=== PATIENT | female | born 2000 | race Caucasian/White ===

== ENCOUNTER 2021-07-19 11:59 | Emergency (ER) | payer SELFPAY ==
[2021-07-19 12:06] VITALS: BP 139/73; PULSE 110; RESP 20; TEMP 36.7; O2SAT 100
--- NOTE | 2021-07-19 12:06 | ED.EAR ---
HPI - Ear Problem General Chief complaint: Ear Stated complaint: ear pain Time Seen by Provider: 07/19/21 12:06 Source: patient and RN notes reviewed History of Present Illness HPI Narrative: Patient is a 21-year-old female who presents the urgent care with complaints of bilateral ear pain for greater than 1 week. Patient states that she started using swimmer's ear drops to bilateral ears and has noticed increased pain and drainage. Patient has been taking ibuprofen. Denies of any fever, nausea, vomiting. Denies of any other upper respiratory complaints. No other acute complaints. No acute distress noted. Patient read the plan of care. Some parts of this dictation were generated by voice recognition software and may contain typographical and/or grammatical inaccuracies. Related Data Home Medications Medication Instructions Recorded Confirmed norgestimate-ethinyl estradiol 1 tablet PO DAILY 07/19/21 07/19/21 [Estarylla] Allergies Allergy/AdvReac Type Severity Reaction Status Date / Time No Known Allergies Allergy Verified 07/19/21 12:49 Review of Systems Review of Systems: CONSTITUTIONAL: Denies fever, chills, or sweats. EYES: Denies visual changes, redness, or discharge. ENT: Denies rhinorrhea, congestion, sore throat. Reports bilateral otalgia with drainage CARDIOVASCULAR: Denies chest pain, palpitations, or edema. RESPIRATORY: Denies cough or dyspnea. GASTROINTESTINAL: Denies abdominal pain, nausea, vomiting, or diarrhea. GENITOURINARY: Denies dysuria or hematuria. SKIN: Denies rash or itching. MUSCULOSKELETAL: Denies back pain, joint pain, or myalgia. NEUROLOGIC: Denies headache, numbness, or weakness. All other systems reviewed are negative, except as documented in HPI. PMFSH Comments At the time of my signature, I reviewed and agree with the nursing past medical, surgical, social, and family history. There is no relevant family history pertinent to the patient complaint. Exam Narrative: GENERAL: This is a well-nourished, well-developed patient, in no apparent distress. HEAD: normocephalic, atraumatic. EYES: PERRL. Sclera clear/white. Vision is grossly intact. EARS: External ears normal, scant drainage bilateral auditory canals with mild edema/erythema, moderate fluid noted behind right TM with mild injection/erythema. Left TMs normal without perforation. Hearing grossly intact. NOSE: External nose normal with no obvious nasal discharge, nares without redness, no rhinorrhea. THROAT: Mucous membranes moist, posterior pharynx clear. NECK: Neck supple, non-tender without lymphadenopathy, masses or thyromegaly. CARDIOVASCULAR: Regular rate and rhythm without murmurs, gallops, or rubs. RESPIRATORY: Clear to auscultation. Breath sounds equal bilaterally. No wheezes, rales, or rhonchi. SKIN: warm, intact with no suspicious lesions or rash, good texture and turgor. NEURO: awake, alert, and oriented to person, place and time. There were no obvious focal neurologic abnormalities. EXTREMITIES: No clubbing, cyanosis, or edema. Course Course Level of Care: Express Care Visit Vital Signs Vital signs: Vital Signs Temperature 98.1 F 07/19/21 12:06 Pulse Rate 110 H 07/19/21 12:06 Respiratory Rate 20 07/19/21 12:06 Blood Pressure 139/73 07/19/21 12:06 Pulse Oximetry 100 07/19/21 12:06 Temperature 98.1 F 07/19/21 12:06 Pulse Rate 110 H 07/19/21 12:06 Respiratory Rate 20 07/19/21 12:06 Blood Pressure 139/73 07/19/21 12:06 Pulse Oximetry 100 07/19/21 12:06 Reviewed Medical Decision Making MDM Narrative Medical decision making narrative: Advised patient to use the eardrops to bilateral ears wiping the applicator tip with each application. Do not put any [id number] drops in your ears. Do not use water, peroxide or Q-tips. Continue ibuprofen as needed for pain. Complete oral antibiotic regimen as prescribed. Be sure to eat and drink with the medication. May use warm chuyita
== END 2021-07-19 12:50 | disposition home or self-care (01) ==
PROVIDERS: Emergency Provider Nurse Practitioner Family
DX: H60.93 Unspecified otitis externa, bilateral (principal); H66.93 Otitis media, unspecified, bilateral
CPT/HCPCS: 99213; G0463

== ENCOUNTER 2022-05-07 19:04 | Emergency (ER) | payer SELFPAY ==
--- NOTE | 2022-05-07 19:17 | ED.ARRPALP ---
HPI - Arrhythmia/Palpitations General Chief Complaint: Arrhythmia/Palpitations Stated Complaint: heart racing and very jittery Time Seen by Provider: 05/07/22 19:40 Source: patient Mode of arrival: ambulatory Limitations: no limitations History of Present Illness HPI narrative: Lori is a 21-year-old female patient presenting to the clinic today with complaints of heart racing and feeling very jittery. She reports that she drank an energy drink around 10:00 this morning and developed jittery/heart racing around 1:00 today. She feels as though her heart racing is making her feel as though she is having a panic attack. She denies any shortness of breath but has slight chest discomfort to the left chest wall. Denies any radiation of pain Related Data Home Medications Medication Instructions Recorded Confirmed norgestimate 0.25 mg-ethinyl 1 tablet PO DAILY 07/19/21 05/07/22 estradiol 35 mcg tablet (Estarylla) Allergies Allergy/AdvReac Type Severity Reaction Status Date / Time No Known Allergies Allergy Verified 05/07/22 19:31 Review of Systems Review of Systems: Pertinent positives per HPI. Patient denies any fever, chills, rash, headache, visual changes, dizziness, cough, runny nose, sore throat, shortness of breath, chest pain, palpitations, nausea, vomiting, diarrhea, constipation, abdominal pain, or any urinary issues. PMFSH Comments At the time of my signature, I reviewed and agree with the nursing past medical, surgical, social, and family history. There is no relevant family history pertinent to the patient complaint. Exam Narrative: General: Well-developed, well nourished, in no apparent distress Head: Normocephalic, atraumatic. Cardio: Tachycardic rate and rhythm, s1 and s2 normal, no murmur appreciated. Resp: Clear to auscultation bilaterally, no rhonchi, rales, wheezing or rubs. Extremities: No deformity, no edema, no cyanosis, capillary refill less than 2 seconds, peripheral pulses palpable and strong-tachycardic. Integumentary: Bazine, warm, and dry, intact without lesion, no rashes. Course Course Emergency Course: Portions of this record may have been created with voice recognition software. Level of Care: Express Care Visit Vital Signs Vital signs: Vital Signs Temperature 36.6 C 05/07/22 19:33 Pulse Rate 131 H 05/07/22 19:33 Respiratory Rate 18 05/07/22 19:33 Blood Pressure 152/77 H 05/07/22 19:33 Pulse Oximetry 98 05/07/22 19:33 Oxygen Delivery Room Air 05/07/22 19:33 Temperature 36.6 C 05/07/22 19:33 Pulse Rate 131 H 05/07/22 19:33 Respiratory Rate 18 05/07/22 19:33 Blood Pressure 152/77 H 05/07/22 19:33 Pulse Oximetry 98 05/07/22 19:33 Oxygen Delivery Room Air 05/07/22 19:33 Vital signs reviewed MDM - Arrhythmia/Palpitations MDM Narrative Medical decision making narrative: At the time of visit patient is anxious laying on the exam stretcher. She reports she feels as though she is having a panic attack. EKG was performed and was sinus tachycardia with a heart rate of 131 bpm without ectopy. I suspect the patient is having palpitations due to the energy drink that she drank at 10:00 this morning plus anxiety from having tachycardia. 50 mg IM of Benadryl was given in the clinic today. Offered to transfer patient to hospital for further work-up/labs. Patient does not wish to go to the hospital at this time as she does not have insurance. Supportive measures were discussed with the patient she voiced understanding of discharge instructions and agrees to treatment plan. Vital signs were obtained at discharge and heart rate was down to 109 and blood pressure was 147/88 Differential Diagnosis Differential diagnosis: Likely palpitations, anxiety, sinus tachycardia, ventricular premature beats, supraventricular tachycardia and ventricular tachycardia ECG Data EKG #1: Attestation: I personally reviewed and interpreted this ECG as follows:
--- NOTE | 2022-05-07 19:19 | ECG_ITS ---
Measurements Intervals [place] Rate: 131 P: 58 SD: 148 QRS: 83 QRSD: 79 T: 6 QT: 294 QTc: 435 Interpretive Statements SINUS TACHYCARDIA NONSPECIFIC ST & T-WAVE ABNORMALITY ABNORMAL RHYTHM ECG NO PREVIOUS ECG AVAILABLE FOR COMPARISON Electronically Signed On 05-07-2022 19:51:55 CDT by Taina Kumari M.D.
[2022-05-07 19:33] VITALS: BP 152/77; PULSE 131; RESP 18; TEMP 36.6; O2SAT 98
[2022-05-07] MEDS: diphenhydrAMINE HCl INJ 50 MG/ML VIAL IM (19:38)
[2022-05-07 20:09] VITALS: BP 147/88; PULSE 109; RESP 16; O2SAT 100
== END 2022-05-07 20:09 | disposition home or self-care (01) ==
PROVIDERS: Emergency Provider Nurse Practitioner Family
DX: R00.2 Palpitations (principal); F41.9 Anxiety disorder, unspecified; R00.0 Tachycardia, unspecified
CPT/HCPCS: 93005; 96372; 99213; G0463; J1200

== ENCOUNTER 2022-07-03 12:50 | Emergency (ER) | payer SELFPAY ==
[2022-07-03 12:52] VITALS: BP 145/90; PULSE 103; RESP 14; TEMP 36.7; O2SAT 100
--- NOTE | 2022-07-03 14:03 | ED.FEMALEGU ---
HPI - Female Genitourinary General Chief complaint: Urogenital-Female Stated complaint: poss UTI Time Seen by Provider: 07/03/22 14:03 Source: patient Mode of arrival: ambulatory Limitations: no limitations History of Present Illness HPI Narrative: 21-year-old female with complaints of UTI symptoms for the past 4 days which include burning with urination, urgency frequency and some suprapubic pressure and lower back pain. Patient reports that she did take AZO for 3 days for her symptoms without resolution. Patient denies any concern for STD exposure, no vaginal discharge noted is presently on menses, denies any fevers, nausea or vomiting or diarrhea. MD elicited complaint: UTI Onset (ago): day(s) (4) Severity scale (1-10): 6 Related Data Home Medications Medication Instructions Recorded Confirmed norgestimate 0.25 mg-ethinyl 1 tablet PO DAILY 07/19/21 07/03/22 estradiol 35 mcg tablet (Estarylla) Allergies Allergy/AdvReac Type Severity Reaction Status Date / Time No Known Allergies Allergy Verified 07/03/22 13:07 Review of Systems Review of Systems: CONSTITUTIONAL: Denies fever, chills, or sweats. CARDIOVASCULAR: Denies chest pain, palpitations, or edema. RESPIRATORY: Denies cough or dyspnea. GASTROINTESTINAL: Denies abdominal pain, nausea, vomiting, or diarrhea. GENITOURINARY: Reports dysuria, frequency, urgency. Denies flank pain or hematuria. SKIN: Denies rash or itching. MUSCULOSKELETAL: Denies back pain or myalgia. Denies CVA tenderness NEUROLOGIC: Denies headache All systems reviewed & are unremarkable except as noted in HPI and below PMFSH Past Medical History Medical History (Updated 07/13/22 @ 15:27 by Misa Bay NP) Ovarian cyst rupture Social History Social History (Updated 07/13/22 @ 15:28 by Misa Bay NP) Smoking status: Never smoker Alcohol intake: current Alcohol use details: social Substance use: never Gender identity (if verbalized by the patient): Female Comments At time of signature, agree with nursing past medical, surgical, social and family history. There is no relevant family history pertinent to the presenting complaint Exam Narrative: GENERAL: Well-appearing, well-nourished, and in no acute distress. HEAD: Normocephalic, atraumatic. NECK: Supple.no lymphadenopathy CHEST: Clear to auscultation. No respiratory distress.SAO2 100% on room air HEART: Regular rate and rhythm. No murmur heard. Normal peripheral pulses. ABDOMEN: Soft, suprapubic pressure, nondistended, normal active bowel sounds. No CVA tenderness, states some low back discomfort EXTREMITIES: Normal range of motion. No edema. SKIN: Warm, dry, no rash. NEURO: No focal deficits. Alert and oriented x3. Course Course Emergency Course: Patient is aware of diagnosis, understands and agrees to treatment plan.? Anticipatory guidance given.? Patient agrees to follow-up as directed and is aware of reasons to seek care at the emergency department. Portions of this record may have been created with voice recognition software Level of Care: Express Care Visit Vital Signs Vital signs: Vital Signs Temperature 36.7 C 07/03/22 12:52 Pulse Rate 103 H 07/03/22 12:52 Respiratory Rate 14 07/03/22 12:52 Blood Pressure 145/90 H 07/03/22 12:52 Pulse Oximetry 100 07/03/22 12:52 Oxygen Delivery Room Air 07/03/22 12:52 Temperature 36.7 C 07/03/22 12:52 Pulse Rate 103 H 07/03/22 12:52 Respiratory Rate 14 07/03/22 12:52 Blood Pressure 145/90 H 07/03/22 12:52 Pulse Oximetry 100 07/03/22 12:52 Oxygen Delivery Room Air 07/03/22 12:52 MDM - Female Genitourinary MDM Narrative Medical decision making narrative: Exam findings and UA show no acute concerns or changes; patient is non-toxic appearing and is in no distress.? Patient is appropriate for outpatient treatment and follow-up. Differential Diagnosis Differential diagnosis: Likely urinary tract infection and c
== END 2022-07-03 14:51 | disposition home or self-care (01) ==
PROVIDERS: Emergency Provider Registered Nurse
DX: N39.0 Urinary tract infection, site not specified (principal)
CPT/HCPCS: 81003; 87077; 87086; 87186; 99213; G0463

== ENCOUNTER 2022-08-12 15:56 | Emergency (ER) | payer SELFPAY ==
[2022-08-12 16:02] VITALS: BP 138/76; PULSE 91; RESP 16; TEMP 36.7; O2SAT 100
--- NOTE | 2022-08-12 16:02 | ED.EAR ---
HPI - Ear Problem General Chief complaint: Ear Stated complaint: Left ear infection Time Seen by Provider: 08/12/22 16:02 History of Present Illness HPI Narrative: LEFT EAR PAIN PATIENT PRESENTS WITH LEFT EAR PAIN NO DRAINAGE FROM EAR PAIN NO HEARING LOSS Related Data Home Medications Medication Instructions Recorded Confirmed norgestimate 0.25 mg-ethinyl 1 tablet PO DAILY 07/19/21 07/03/22 estradiol 35 mcg tablet (Estarylla) Allergies Allergy/AdvReac Type Severity Reaction Status Date / Time No Known Allergies Allergy Verified 07/03/22 13:07 Review of Systems Review of Systems: CONSTITUTIONAL: DENIES FEVER, CHILLS, OR SWEATS. EYES: DENIES VISUAL CHANGES, REDNESS, OR DISCHARGE. ENT: DENIES RHINORRHEA, CONGESTION, SORE THROAT, OR OTALGIA. CARDIOVASCULAR: DENIES CHEST PAIN, PALPITATIONS, OR EDEMA. RESPIRATORY: DENIES COUGH OR DYSPNEA. GASTROINTESTINAL: DENIES ABDOMINAL PAIN, NAUSEA, VOMITING, OR DIARRHEA. GENITOURINARY: DENIES DYSURIA OR HEMATURIA. SKIN: DENIES RASH OR ITCHING. MUSCULOSKELETAL: DENIES BACK PAIN, JOINT PAIN, OR MYALGIA. NEUROLOGIC: DENIES HEADACHE, NUMBNESS, OR WEAKNESS. PSYCHIATRIC: DENIES ANXIETY OR DEPRESSION. [facility] Past Medical History Medical History (Updated 08/12/22 @ 16:11 by SHARLENE Lee) Ovarian cyst rupture Social History Social History (Updated 07/13/22 @ 15:28 by Misa Bay NP) Smoking status: Never smoker Alcohol intake: current Alcohol use details: social Substance use: never Gender identity (if verbalized by the patient): Female Comments AT TIME OF SIGNATURE, AGREE WITH NURSING PAST MEDICAL, SURGICAL, SOCIAL AND FAMILY HISTORY. THERE IS NO RELEVANT FAMILY HISTORY PERTINENT TO THE PRESENTING COMPLAINT Exam Narrative: GENERAL: WELL-APPEARING, WELL-NOURISHED, AND IN NO ACUTE DISTRESS. HEAD: NORMOCEPHALIC, ATRAUMATIC. EYES: PERRLA AND EOMI. ENT: NARES CLEAR, NO RHINORRHEA OR EPISTAXIS. MUCOUS MEMBRANES MOIST. LEFT EAR MODERATE ERYTHEMA ME A DULLNESS TO M PAIN WITH MOVEMENT OF CANAL NECK: SUPPLE. CHEST: CLEAR TO AUSCULTATION. NO RESPIRATORY DISTRESS. HEART: REGULAR RATE AND RHYTHM. NO MURMUR HEARD. NORMAL PERIPHERAL PULSES. ABDOMEN: SOFT, NONTENDER, NONDISTENDED, NORMAL ACTIVE BOWEL SOUNDS. EXTREMITIES: NORMAL RANGE OF MOTION. NO EDEMA. SKIN: WARM, DRY, NO RASH. NEURO: NO FOCAL DEFICITS. ALERT AND ORIENTED X3. [place] COMA SCALE EYE OPENING: SPONTANEOUS 4 [place] COMA SCALE MOTOR: OBEYS COMMANDS 6 [place] COMA SCALE VERBAL: ORIENTED 5 [place] COMA SCALE TOTAL 15 Course Course Level of Care: Express Care Visit Vital Signs Vital signs: Vital Signs Temperature 36.7 C 08/12/22 16:02 Pulse Rate 91 08/12/22 16:02 Respiratory Rate 16 08/12/22 16:02 Blood Pressure 138/76 08/12/22 16:02 Pulse Oximetry 100 08/12/22 16:02 Oxygen Delivery Room Air 08/12/22 16:02 Temperature 36.7 C 08/12/22 16:02 Pulse Rate 91 08/12/22 16:02 Respiratory Rate 16 08/12/22 16:02 Blood Pressure 138/76 08/12/22 16:02 Pulse Oximetry 100 08/12/22 16:02 Oxygen Delivery Room Air 08/12/22 16:02 Medical Decision Making Differential Diagnosis Differential Diagnosis: OTITIS MEDIA, OTITIS EXTERNA EUSTACHIAN TUBE DYSFUNCTION Vital Signs Vital Signs: Vital Signs Temperature 36.7 C 08/12/22 16:02 Pulse Rate 91 08/12/22 16:02 Respiratory Rate 16 08/12/22 16:02 Blood Pressure 138/76 08/12/22 16:02 Pulse Oximetry 100 08/12/22 16:02 Oxygen Delivery Room Air 08/12/22 16:02 Temperature 36.7 C 08/12/22 16:02 Pulse Rate 91 08/12/22 16:02 Respiratory Rate 16 08/12/22 16:02 Blood Pressure 138/76 08/12/22 16:02 Pulse Oximetry 100 08/12/22 16:02 Oxygen Delivery Room Air 08/12/22 16:02 Discharge Plan Discharge Clinical Impression: Otitis media, Otitis externa Patient Disposition: Home, Self-Care Condition: Stable Instructions: Antibiotic Form, Ear Infection (AC)
== END 2022-08-12 16:18 | disposition home or self-care (01) ==
PROVIDERS: Emergency Provider Nurse Practitioner Family; PCP Family Medicine
DX: H66.92 Otitis media, unspecified, left ear (principal); H60.92 Unspecified otitis externa, left ear
CPT/HCPCS: 99213; G0463

== ENCOUNTER 2022-08-31 08:44 | Emergency (ER) | payer SELFPAY ==
[2022-08-31 08:56] VITALS: BP 125/96; PULSE 106; RESP 14; TEMP 37.1; O2SAT 100
--- NOTE | 2022-08-31 09:14 | ED.GENADULT ---
HPI - General Adult General Chief complaint: Urogenital-Female Stated complaint: yeast infection Source: patient and RN notes reviewed History of Present Illness HPI narrative: 22 yo F presents to urgent care with complaints of vaginal discharge, dysuria, and red bumps in her genital area x 2-3 days. Pt reports finishing a 12 day course of Augmentin for an ear infection on 08/22/22. Pt also reports an irregular menstrual period this month and states she just started her period today when she already had a period this month. Pt reports dyspareunia the other day. Reports shaving her genital area the other day and was unsure if the red bumps could be from this. Reports the same sexual partner for the last 5 years. . Denies any fevers, chills, abdominal pain, or vomiting. Pt states her ear symptoms are relieved. Pt did use a vaginal suppository of Monistat yesterday without relief. Related Data Home Medications Medication Instructions Recorded Confirmed norgestimate 0.25 mg-ethinyl 1 tablet PO DAILY 07/19/21 08/31/22 estradiol 35 mcg tablet (Estarylla) Allergies Allergy/AdvReac Type Severity Reaction Status Date / Time sulfamethoxazole AdvReac Dizziness Verified 08/31/22 09:14 [From Bactrim] trimethoprim [From Bactrim] AdvReac Dizziness Verified 08/31/22 09:14 Review of Systems Review of Systems: CONSTITUTIONAL: Denies fever, chills, or sweats. EYES: Denies visual changes, redness, or discharge. ENT: Denies otalgia and sore throat CARDIOVASCULAR: Denies chest pain, palpitations, or edema. RESPIRATORY: Denies cough or dyspnea. GASTROINTESTINAL: Denies abdominal pain, nausea, vomiting, or diarrhea. GENITOURINARY: Reports dysuria and vaginal discharge SKIN: Reports genital rash MUSCULOSKELETAL: Denies back pain, joint pain, or myalgia. NEUROLOGIC: Denies headache, numbness, or weakness. [facility] Past Medical History Medical History (Updated 08/31/22 @ 09:56 by Jacki Devlin APRN) Ovarian cyst rupture Social History Social History (Updated 07/13/22 @ 15:28 by Misa Bay NP) Smoking status: Never smoker Alcohol intake: current Alcohol use details: social Substance use: never Gender identity (if verbalized by the patient): Female Comments At the time of my signature, I reviewed and agree with the nursing past medical, surgical, social, and family history. There is no relevant family history pertinent to the patient complaint. Exam Narrative: GENERAL: This is a well-nourished, well-developed patient, in no apparent distress. HEAD: normocephalic, atraumatic. EYES: PERRL. Sclera clear/white. Vision is grossly intact. EARS: External ears normal, auditory canals clear and without drainage, TMs normal without perforation. Hearing grossly intact. NOSE: External nose normal with no obvious nasal discharge, nares without redness, no rhinorrhea. THROAT: Mucous membranes moist, posterior pharynx clear. NECK: Neck supple, non-tender without lymphadenopathy, masses or thyromegaly. CARDIOVASCULAR: Regular rate and rhythm without murmurs, gallops, or rubs. RESPIRATORY: Clear to auscultation. Breath sounds equal bilaterally. No wheezes, rales, or rhonchi. GASTROINTESTINAL: Abdomen soft, non-tender, nondistended. Bowel sounds are active. No hepato-splenomegaly, or palpable masses. No guarding. GENITAL: muliple erythremic blisters/papules to external genitalia/labia majora as well as labia minora and vaginal os. Very tender to palpation. Attempted speculum exam with limited assessment due to pain and inability to advance speculum. No vaginal discharge was noted. Pt is on menstrual period currently. Swabs were obtained with limitations due to pain. SKIN: warm, intact with no suspicious lesions or rash, good texture and turgor. NEURO: awake, alert, and oriented to person, place and time. There were no obvious focal neurologic abnormalities. Course Course Level of Care: Express Care Visit Vital Sig
--- NOTE | 2022-08-31 10:27 | PC.NURSE ---
08/31/22 1019 ROCEPHIN 250 MG GIVEN IM IN THE LEFT BUTTOCK AND AZITHROMYCIN 1000 MG GIVEN PO. SARA BRADY RN
== END 2022-08-31 10:37 | disposition home or self-care (01) ==
PROVIDERS: Emergency Provider Nurse Practitioner Family; PCP Family Medicine
DX: B37.31 Acute candidiasis of vulva and vagina (principal)
CPT/HCPCS: 81003; 81025; 87070; 87255; 87491; 87591; 87661; 96372; 99214; G0463; J0696

== ENCOUNTER 2023-12-07 17:12 | Emergency (ER) | payer SELFPAY ==
--- NOTE | 2023-12-07 17:36 | ED.EAR ---
HPI - Ear Problem General Chief complaint: Ear Stated complaint: Ear Problem/Blood Pressure Problem Source: patient Mode of arrival: ambulatory Limitations: no limitations History of Present Illness HPI Narrative: 23 y/o female presented for complaint of palpitations, onset today around 1400. She states she was walking into the store when she felt dizzy, then developed heart racing and felt hot. When she completed her purchases she sat down in the store and blood pressure was checked by the pharmacist; 140s over 80s. Symptoms resolved and she went home, took a bath and palpitations returned. States she is 'freaking out.' Reports a history of palpitations after energy drink, and was told she has anxiety in 2021. Currently without insurance or PCP. Denies drug use or energy drinks. Currently denies chest pain, sob, n/v/d/f/c. Patient also states ears feel full and itchy, onset one year. Endorses occasional clear fluid from ears. States she did not take the cipro prescribed at the onset one year ago, and says she has continued to have symptoms. Denies ear pain, tinnitus, n/v/d/f/c. Related Data Home Medications Medication Instructions Recorded Confirmed No Home Medications 12/07/23 12/07/23 Allergies Allergy/AdvReac Type Severity Reaction Status Date / Time sulfamethoxazole AdvReac Dizziness Verified 12/07/23 17:44 [From Bactrim] trimethoprim [From Bactrim] AdvReac Dizziness Verified 12/07/23 17:44 Review of Systems Review of Systems: CONSTITUTIONAL: Denies body aches, fever, chills, or sweats. EYES: Denies visual changes, redness, or discharge. ENT: Denies rhinorrhea, congestion, sore throat, reports ear fullness. CARDIOVASCULAR: reports palpitations, Denies chest pain, or edema. RESPIRATORY: Denies cough or dyspnea. GASTROINTESTINAL: Denies abdominal pain, nausea, vomiting, or diarrhea. SKIN: Denies rash, itching, or wounds. MUSCULOSKELETAL: Denies back pain, joint pain, or myalgia. NEUROLOGIC: Denies headache, numbness, tingling, or weakness. PSYCH: reports anxiety. All systems reviewed & are unremarkable except as noted in HPI and below PMFSH Past Medical History Medical History Ovarian cyst rupture Social History Social History Smoking status: Never smoker Alcohol intake: current Alcohol use details: social Substance use: never Gender identity (if verbalized by the patient): Female Comments At time of signature, I have reviewed and agree with nursing past medical, surgical, social and family history unless otherwise noted. Please see nursing chart for further information. There is no relevant family history pertinent to the presenting complaint Exam Narrative: GENERAL: Well-appearing, and in no acute distress. HEAD: Normocephalic, atraumatic. EYES: EOMI. No redness or drainage. Conjunctivae normal. ENT: Mucous membranes pink and moist. No rhinorrhea. TMs normal bilaterally, clear effusion. Throat normal. Uvula midline. NECK: Normal AROM. Supple. No lymphadenopathy. CHEST: No respiratory distress. Clear to auscultation. HEART: Regular rhythm, tachy. No murmur appreciated. Normal peripheral pulses. ABDOMEN: Soft, nontender, nondistended, normal active bowel sounds. EXTREMITIES: Normal range of motion. No edema. SKIN: Warm, dry, no rash. Capillary refill normal. Normal skin turgor. NEURO: No focal deficits. Alert and oriented x3. Gait steady. PSYCH: Appears anxious, hand shaking, talkative. Course Course Emergency Course: Patient is aware of diagnosis, understands and agrees to treatment plan. Anticipatory guidance given. Patient agrees to follow-up as directed and is aware of reasons to seek care at the emergency department. Portions of this record may have been created with voice recognition software Level of Care: Express Care Visit Vital Signs Vital s
[2023-12-07 17:49] VITALS: BP 144/89; PULSE 101; RESP 18; TEMP 37.1; O2SAT 100
--- NOTE | 2023-12-07 17:55 | ECG_ITS ---
[facility] [address] Test Date: 2023-12-07 Pat Name: Agnieszka Alcantar Department: Room: Gender: F Senior Technical Business Analyst: : 2000 Requested By: Ayaka Doty Order Number: [id number] Reading MD: Buzz Clancy M.D. Measurements Intervals [place] Rate: P: AK: QRS: QRSD: T: QT: QTc: Interpretive Statements POOR QUALITY COPY OF ECG DIFFICULT INTERPRETATION SINUS TACHYCARDIA BORDERLINE ECG Electronically Signed On 12-21-2023 08:47:11 CDT by Buzz Clancy M.D.
== END 2023-12-07 19:01 | disposition home or self-care (01) ==
PROVIDERS: Emergency Provider Nurse Practitioner Family
DX: H65.93 Unspecified nonsuppurative otitis media, bilateral (principal); F41.9 Anxiety disorder, unspecified; R00.2 Palpitations
CPT/HCPCS: 93005; 99211; G0463

== ENCOUNTER 2025-02-02 08:16 | Emergency (ER) | payer BC, SELFPAY ==
--- NOTE | 2025-02-02 08:20 | ED.GENADULT ---
HPI - General Adult General Chief complaint: Ear Stated complaint: Ear pain Time Seen by Provider: 02/02/25 08:31 Source: patient, RN notes reviewed and old records reviewed Mode of arrival: ambulatory Limitations: no limitations History of Present Illness HPI narrative: [age] year female presents to the [facility] with left ear pain x5 days. No treatment prior to arrival. History of ?microorganism ?of the same ear. Reports similar episode where she needed ?multiple rounds of antibiotics. ? Recently been swimming. Denies any other symptoms Treatments prior to arrival: none Related Data Home Medications ?Medication ?Instructions ?Recorded ?Confirmed ?Last Taken ?Type fluoxetine 02/02/25 Unknown History Allergies Allergy/AdvReac Type Severity Reaction Status Date / Time sulfamethoxazole (From AdvReac Dizziness Verified 12/07/23 17:44 Bactrim) trimethoprim (From Bactrim) AdvReac Dizziness Verified 12/07/23 17:44 Review of Systems Review of Systems: All systems reviewed & are unremarkable except as noted in HPI and below Constitutional: Constitutional: Reports no additional constitutional complaints ENT: Reports as per HPI and Reports otalgia (Left) Respiratory: Respiratory: Reports no additional respiratory complaints, Denies chest congestion, Denies cough and Denies dyspnea Integumentary/Breasts: Skin/Breast: Reports system reviewed and no additional complaints, except as docu PMFSH Past Medical History Medical History Ovarian cyst rupture Social History Social History Smoking status: Never smoker Alcohol intake: current Alcohol use details: social Substance use: never Gender identity (if verbalized by the patient): Female Comments At the time of my signature, I reviewed and agree with the nursing past medical, surgical, social, and family history. There is no relevant family history pertinent to the patient complaint. Exam Const: General: cooperative, healthy appearing, comfortable, no acute distress, well developed, alert and well nourished Nutritional Appearance: well nourished Orientation/consciousness: patient oriented x3 Limitations: no limitations HENMT: Head: normal to inspection Ears: hearing grossly normal bilaterally, external ears normal, TM's normal bilaterally and Abnormal EAC present erythema on the left, edema on the left and otic discharge purulent on the left; no foreign body Mouth: Yes Normal oral and palatal mucosa present, Yes lip normal, Yes tongue normal and Yes moist mucous membranes Throat: posterior oropharynx normal, uvula midline and no uvular edema Eyes: General: appearance normal, both eyes and all related structures Alignment and Position: alignment normal Neck: Neck: normal visual inspection, full ROM, no lymphadenopathy and no meningeal signs Chest: Chest palpation & inspection: normal inspection of the chest Resp: Effort & Inspection: normal respiratory effort and able to speak in complete sentences Cardio: Rate: regular rate Skin: General skin exam: normal color and no rashes or lesions noted Neuro: General: patient oriented x3, gait normal, moves all extremities and no meningeal signs Cognition (Neuro): normal cognition Speech: normal speech Gait exam (Neuro): Normal gait present Extrem: General: normal to inspection, full ROM, capillary refill normal and normal gait Psych: Appearance: grossly normal and well kempt Mental Status: mental status grossly normal Speech and movement: Normal speech and movement present and Clear speech present Affect: normal affect Attitude: cooperative Course Course Level of Care: Express Care Visit Vital Signs Vital signs: Vital Signs Temperature 97.8 F 02/02/25 08:22 Pulse Rate 88 02/02/25 08:22 Respiratory Rate 14 02/02/25 08:22 Blood Pressure 145/89 H 02/02/25 08:22 Pulse Oximetry 100 02/02/25 08:22 Oxygen Delivery Room Air 02/02/25 08:22 Temperature 97.8 F 02/02/25 08:22 Pulse Rate 88 02/02/25 08:22 Respiratory Rate 14 02/02/25 08:22 Blood Pressure 145/89 H 02/02/25 08:22 Pulse Oximetry 100 02/02/25 08:22 Oxygen Delivery Room Air 02/02/25 08:22 Reviewed Medical Decision Making MDM Narrative Medical decision making narrative: Patient sitting comfortably in exam room. Nontoxic, vitals stable. Patient in no acute distress Patient presents with 5 day history of increasing left ear discomfort. Recently swimming. TMs within normal limits. Erythema, swelling noted to the left ear canal. Exam consistent with swimmer's ear. Patient appropriate for outpatient treatment with Cipro dex. Discharge instructions reviewed with patient, as well as provided in writing per nursing staff. The instructions also include specific and strict return/GO TO THE ER as well as f/u information. All questions have been answered, and the patient deny any further questions with discharge and discharge plan. Some parts of this dictation were generated by voice recognition software and may contain typographical and/or grammatical inaccuracies. Differential Diagnosis Differential Diagnosis: Otitis media, serous otitis, URI otitis externa Medical Records Medical records reviewed: Yes I reviewed the external patient's medical records. Vital Signs Vital Signs: Vital Signs Temperature 97.8 F 02/02/25 08:22 Pulse Rate 88 02/02/25 08:22 Respiratory Rate 14 02/02/25 08:22 Blood Pressure 145/89 H 02/02/25 08:22 Pulse Oximetry 100 02/02/25 08:22 Oxygen Delivery Room Air 02/02/25 08:22 Temperature 97.8 F 02/02/25 08:22 Pulse Rate 88 02/02/25 08:22 Respiratory Rate 14 02/02/25 08:22 Blood Pressure 145/89 H 02/02/25 08:22 Pulse Oximetry 100 02/02/25 08:22 Oxygen Delivery Room Air 02/02/25 08:22 Reviewed Lab Data Lab results reviewed: Yes I reviewed the patient's lab results. Labs: Reviewed Critical Care Time Critical Care Time Critical Care Time: No Discharge Plan Discharge Clinical Impression: Acute otitis externa of left ear Patient Disposition: Home Condition: Stable Instructions: Antibiotic Form, Swimmer's Ear (ED) Additional Instructions: Take Motrin alternating with Tylenol as needed for pain Avoid swimming Follow-up with primary care provider or ENT provider Use ear drops as prescribed New or worsening symptoms go directly to the emergency room Patient Language: Citizen Of [place] Prescriptions: New ciprofloxacin-dexamethasone 0.3-0.1 % drops,suspension 5 drp LEFT EAR Q12H 7 Days Qty: 7.5 0RF No Action fluoxetine Follow-up/Referrals: PHYSICIAN,RELAY REPAIRER [Primary Care Provider] - Stand Alone Forms: Work/School Release IP Time of Disposition: 08:39
--- OUTSIDE RECORDS SUMMARY | 2025-02-02 08:21 | XMS_ITS | Referral Summary ---
Author Organization [facility] Address [address] [place] [address] Care Team Providers Care Pecan Gatherer Name Role Phone No, Physician Primary Care Provider [phone] Encounters Date Type Department Care Team Description 12/24/2024 Results Follow[facility]Up [facility] [address] [place] [address] Jaimie Patterson MD Pap with reflex to High Risk HPV and Genotyping (Cytology Component) 12/19/2024 2:42 PM CDT - 12/19/2024 11:59 PM CDT Hospital Encounter [facility] [address] [facility] [address] [place] [address] Screening for malignant neoplasm of the cervix Discharge Disposition: Discharge to home or self care 12/19/2024 2:30 PM CDT [facility] [address] [place] [address] Jaimie Patterson MD Encounter for gynecological examination without abnormal finding (Primary Dx); Encounter for preconception consultation; Generalized anxiety disorder; Screening for malignant neoplasm of the cervix from Last 3 Months Allergies Active Allergy Reactions Criticality Noted Date Comments Sulfamethoxazole-Trim ethoprim Other (See comments) Low 08/14/2022 Did not like it Medications FLUoxetine (PROzac) 20 mg capsuleIndicati ons:Generalized anxiety disorder Take 1 capsule (20 mg total) by mouth daily 90 capsule 3 12/19/2024 Active Active Problems Problem Noted Date Diagnosed Date Dizziness 01/03/2024 Assessment & Plan (01/03/2024 1:38 PM CDT): 64 ounces of caffeine free and soda free fluid daily 10 drops of the swimmer's ear recipe daily for two weeks Avoid ear cleaning techniques Avoid water to ears Continue Prozac, call if no improvement in the dizziness in 6-8 weeks Chronic diffuse otitis externa of both ears 12/15 Assessment & Plan (01/03/2024 1:38 PM CDT): 64 ounces of caffeine free and soda free fluid daily 10 drops of the swimmer's ear recipe daily for two weeks Avoid ear cleaning techniques Avoid water to ears Continue Prozac, call if no improvement in the dizziness in 6-8 weeks Dysfunction of both eustachian tubes 01/03/2024 Assessment & Plan (01/03/2024 1:39 PM CDT): Stop Zyrtec Flonase 2 sprays into each nostril while looking down over the sink, do not sniff in or blow nose after use for at least 30 minutes daily Generalized anxiety disorder 12/13/2023 Increased frequency of urination 07/23/2015 Urinary tract infection 07/21/2015 Immunizations Immunization Administration Dates Next Due DTaP 03/07/2005, 1,01/26/2000,1999, 1999 HPV, Unspecified 10/11/2010,05/30/2010, 0 Hep A, Pediatric 10/11/2010,03/28/2010 Hep B, Adolescent or Pediatric 03/07/2005,2001,02/12/2000 HiB 12/21/2000,01/26/2000,1999 ,1999 IPV 03/07/2005,12/21/2000,1999 ,1999 Influenza, Unspecified 05/30/2010 MMR 06/22/2004,05/10/2000 Meningococcal MCV4, Unspecified 10/11/2010 Meningococcal MCV4P (Menactra) 04/02/2017 Pneumococcal Conjugate 7-Valent 02/18/2001,05/10 Tdap 03/28/2010 Varicella 03/28/2010,03/07/2005 Social History Tobacco Use Types Packs/Day Years Used Date Smoking Tobacco: Never Smokeless Tobacco: Never Alcohol Use Standard Drinks/Week Comments Not Currently 5 (1 standard drink = 0.6 oz pur e alcohol) 1 X EVERY 2 WEEKS Personal Safety Answer Date Recorded Have you ever been in or are you currently in a harmful physical or emotional relationship or is someone making you feel afraid or unsafe? 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 Gender Identity Not on file Sexual Orientation Not on file Occupation Industry Job Start Date Job End Date Not on file Not on file Not on file Not on file Last Filed Vital Signs Vital Sign Reading Time Taken Comments Blood Pressure 142/88 12/19/2024 2:11 PM CDT Pulse 92 01/03/2024 1:11 PM CDT Temperature 36.1 C (97 F) 01/03/2024 1:11 PM CDT Respiratory Rate 16 12/08/2023 5:46 PM CDT Oxygen Saturation 99% 01/03/2024 1:11 PM CDT Inhaled Oxygen Concentration - - Weight 66.2 kg (146 lb) 12/19/2024 2:11 PM CDT Height 172.7 cm (5' 8) 12/19/2024 2:11 PM CDT Body Mass Index 22.2 12/19/2024 2:11 PM CDT Plan of Treatment Not on file Procedures Procedure Name Priority Date/Time Associated Diagnosis Comments THINPREP PROCESSING (MOLECULAR COMPONENT) Routine 12/19/2024 3:29 PM CDT Screening for malignant neoplasm of the cervix PAP WITH REFLEX TO HIGH RISK HPV Routine 12/19/2024 9:08 AM CDT Screening for malignant neoplasm of the cervix from Last 3 Months Results * ThinPrep processing (Molecular component) (12/19/2024 3:29 PM CDT) ThinPrep processing (Molecular component) Specimen received for processing. [facility] Comment:Testing performed by : [facility], [address] [place]., [address] Endocervical 12/19/2024 3:29 PM CDT 12/22/2024 10:19 AM CDT Jaimie Patterson MD LAB BODY FLUIDS AND S TOOLS ORDERABLES Final Result [address] Department of Laboratories [place] [id number] [facility] * Pap with reflex to High Risk HPV and Genotyping (Cytology Component) (12/19/2024 9:08 AM CDT) Thin prep (Pap test) 12/19/2024 9:08 AM CDT 12/19/2024 9:08 AM CDT Narrative PATHOLOGY - 12/23/2024 1:34 PM CDT [facility] Department of Pathology [address] [place] [id number] Final Report Note to Patients: This report may contain a detailed description of human tissue sent by a health care provider to the laboratory for pathologic evaluation. The content of this report is essential for diagnosis and may provide important critical findings. This information may be unfamiliar to patients to review without a medical professional present. It is advised that the patient review this report in the presence of a health care provider who can answer questions and explain the details. Patient Name: AGNIESZKA LOOMIS Address: [address] [place] [address] Gender: F : 2000 (Age: 24) Service: Location: N : [id number] [facility] #: [id number] Patient Type: [facility] SPECIMEN Taken: 12/19/2024 Received: 12/19/2024 Accessioned:: 12/22/2024 Reported: 12/23/2024 Physician(s): MD Jaimie Lehman MD Diagnosis: SOURCE OF SPECIMEN Imaged Thinprep Pap Test w/ Reflex HPV - Generator Worker Cytologic Material: STATEMENT OF ADEQUACY - Satisfactory for evaluation; endocervical/transformation zone component present GENERAL CATEGORIZATION: - Negative for intraepithelial lesion or malignancy DORIS Jacobsen(ASCP) Report Electronically Reviewed and Signed Out By DORIS Jacobsen(ASCP) 12/23/2024 13:34:39Specimen(s) Received: A: Imaged Thinprep Pap Test w/ Reflex HPV - Generator Worker Cytologic Material Clinical History: Last Menstrual Period: 12/09/24 Menstrual History: Previous Negative Pap The Pap test is a screening test used to aid in the detection of cervical cancer and its precursors. It should not be the sole means by which malignant and premalignant lesions are diagnosed. Both false negative and false positive results may occur. It also has poor sensitivity for the detection of endometrial lesions and should not be used to evaluate suspected endometrial abnormalities. For these reasons it is most important to obtain Pap tests at regular intervals. The performance characteristics of some immunohistochemical stains, fluorescence in-situ hybridization tests and immunophenotyping by flow cytometry cited in this report (if any) were determined by the Surgical Pathology Department at [facility] as part of an ongoing manager of quality program and in compliance with federally mandated regulations drawn from the Clinical Laboratory Improvement Act of 1988 (CLIA '88). Some of these tests rely on the use of analyte specific reagents and are subject to specific labeling requirements by the US Food and Drug Administration. Such diagnostic tests may only be performed in a facility that is certified by the Department of Health and Human Services as a high complexity laboratory under CLIA '88. The FDA has determined that such clearance or approval is not necessary. This test is used for clinical purposes. It should not be regarded as investigational or for research. Nevertheless, federal rules concerning the medical use of analyte specific reagents require that the following disclaimer be attached to the report: This test was developed and its performance characteristics determined by the Surgical Pathology Department [facility]. It has not been cleared or approved by the U. S. Food and Drug Administration. Jaimie Patterson MD LAB CYTOLOGY ORDERABL ES Final Result PATHOLOGY [address] [place] [address] from Last 3 Months Insurance [employer] COVENTRY HMO/POS [facility] [facility] [place] [address] Care Teams Pecan Gatherer Relationship Specialty Start Date End Date No, Physician PCP - General 12/08/23
--- OUTSIDE RECORDS SUMMARY | 2025-02-02 08:21 | XMS_ITS | Clinical Summary ---
Author Organization [facility] Address [address] [place] [address] Care Team Providers Care Computer Numerical Control Grinder Name Role Phone No, Physician Primary Care Provider [phone] Allergies Active Allergy Reactions Criticality Noted Date [...] of urination 07/23/2015 Urinary tract infection 07/21/2015 Encounters Date Type Department Care Team Description 12/24/2024 Results Follow-Up [facility] [address] [place] [address] Jaimie Patterson MD Pap with reflex to High Risk HPV and Genotyping (Cytology Component) 12/19/2024 2:42 PM CDT - 12/19/2024 11:59 PM CDT Hospital Encounter [facility] [address] [place] [address] Screening for malignant neoplasm of the cervix Discharge Disposition: Discharge to home or self care 12/19/2024 2:30 PM CDT Office Visit [facility] [address] [place] [address] Jaimie Patterson MD Encounter for gynecological examination without abnormal finding (Primary Dx); Encounter for preconception consultation; Generalized anxiety disorder; Screening for malignant neoplasm of the cervix from Last 3 Months Immunizations Immunization Administration Dates Next Due DTaP 03/07/2005, 1,01/26/2000,1999, 1999 HPV, Unspecified 10/11/2010,05/30/2010, 0 Hep A, Pediatric 10/11/2010,03/28/2010 Hep B, Adolescent or Pediatric 03/07/2005,2001,02/12/2000 HiB 12/21/2000,01/26/2000,1999 ,1999 IPV 03/07/2005,12/21/2000,1999 ,1999 Influenza, Unspecified 05/30/2010 MMR 06/22/2004,05/10/2000 Meningococcal MCV4, Unspecified 10/11/2010 Meningococcal MCV4P (Menactra) 04/02/2017 Pneumococcal Conjugate 7-Valent 02/18/2001,05/10 Tdap 03/28/2010 Varicella 03/28/2010,03/07/2005 Medical History Medical History Date Comments Recurrent UTI Evaluated by uro logy in high school with unremarkable work up. Genital herpes HSV-1 positive Family History Medical History Relation Name Comments Hypertension Father Colon cancer Father's Sister Diabetes Maternal Grandfather Diabetes Mother's Brother Bradycardia Other Maternal great aunt Stroke Paternal Grandmother Relation Name Status Comments Father Father's Sister Maternal Grandfather Mother's Brother Other Paternal Grandmother Social History Tobacco Use Types Packs/Day Years [...] on file Legal Sex Female 1:22 AM MEDIA RELATIONS DIRECTOR Gender Identity Not on file Sexual Orientation Not on file Occupation Industry Job Start Date Job End Date Not on file Not on file Not on file Not on file Obstetrics History Para Term AB IAB SAB Ectopic Multiple Livin g Live Births 0 0 0 0 0 0 0 0 0 0 0 Last Filed Vital Signs Vital Sign Reading [...] 12/19/2024 2:11 PM CDT Plan of Treatment Health Maintenance Due Date Last Done Comments Depression Screening 2000 Hepatitis C Screening 2000 DTaP/Tdap/Td Vaccine (7 - Td or Tdap) 03/28/2020 03/28/2010, 03/07/2005, 12/21/2000, Additional history exists Influenza Vaccine (Season Ended) 2025 05/30/20 10 Cervical Cancer Screening 12/19/20252024, 12/05/2022, 10/13/2020 Regular Well Visit/Exam 18-64 12/19/2025, 12/13/2023, 12/05/2022, Additional history exists Pneumococcal vaccine <65 Completed 02/18/2001, 04/16 Hepatitis B Screening Completed 03/07/2005 , 05/10/2002, 02/12/2000 Varicella Vaccines Completed 03/28/2010, 03/07/2005 HPV Vaccines Completed 10/11/2010, 05/16, 03/28/2010 Procedures Procedure Name Priority Date/Time Associated Diagnosis [...] processing (Molecular component) Specimen received for processing. [facility] Comment:Testing performed by : [facility], [address] [place]., [address] Endocervical 12/19/2024 3:29 PM CDT 12/22/2024 10:19 AM CDT us Jaimie Patterson MD LAB BODY FLUIDS AND S TOOLS ORDERABLES Final Result [address] Department [place] [address] [facility] * Pap with reflex to High Risk HPV and Genotyping (Cytology Component) (12/19/2024 9:08 AM CDT) Thin prep (Pap test) 12/19/2024 9:08 AM CDT 12/19/2024 9:08 AM CDT Narrative PATHOLOGY CH - 12/23/2024 1:34 PM CDT [facility] Department of Pathology [address] [place], [place] [id number] Final Report Note to Patients: This report [...] the details. Patient Name: AGNIESZKA LOOMIS Address: [address] [place] [address] Gender: F : 2000 (Age: 24) Service: Location: N : [id number] [facility] #: [id number] Patient Type: [facility] SPECIMEN Taken: 12/19/2024 Received: 12/19/2024 Accessioned:: 12/22/2024 Reported: 12/23/2024 Physician(s): MD Jaimie Lehman MD Diagnosis: SOURCE OF SPECIMEN Imaged Thinprep Pap Test w/ Reflex HPV - Court Collections Officer Cytologic Material: STATEMENT OF ADEQUACY - Satisfactory for evaluation; endocervical/transformation zone component present GENERAL CATEGORIZATION: - Negative for intraepithelial lesion or malignancy DORIS Jacobsen(ASCP) Report Electronically Reviewed and Signed Out By DORIS Jacobsen(ASCP) 12/23/2024 13:34:39Specimen(s) Received: A: Imaged Thinprep Pap Test w/ Reflex HPV - Court Collections Officer Cytologic Material Clinical History: Last Menstrual Period: [...] determined by the Surgical Pathology Department at [facility] as part of an ongoing construction quality control manager program and in compliance with federally mandated [...] characteristics determined by the Surgical Pathology Department [facility]. It has not been cleared or approved by the U. S. Food and Drug Administration. Jaimie Patterson MD LAB CYTOLOGY ORDERABL ES Final Result PATHOLOGY [address] [place] [address] from Last 3 Months Insurance [employer] HMO/POS [facility]LY [facility] Care Teams Computer Numerical Control Grinder Relationship Specialty Start Date End Date No, Physician PCP - General 12/08/23
[2025-02-02 08:22] VITALS: BP 145/89; PULSE 88; RESP 14; TEMP 36.6; O2SAT 100
== END 2025-02-02 08:44 | disposition home or self-care (01) ==
PROVIDERS: Emergency Provider Nurse Practitioner
DX: H60.502 Unspecified acute noninfective otitis externa, left ear (principal)
CPT/HCPCS: 99213; G0463